=== PATIENT | male | born 1960 | race Caucasian/White ===

== ENCOUNTER 2018-10-28 17:41 | Emergency (ER) | payer MEDICAID ==
[~2018-10-28] VITALS: Ht 180.3 cm; Wt 59.0 kg
[2018-10-28 19:41] VITALS: BP 120/81
== END 2018-10-28 19:42 | disposition home or self-care (01) ==
LOC: M.ERS 17:41
DX: S01.01XA Laceration without foreign body of scalp, initial encounter (principal); M54.2 Cervicalgia; W22.8XXA Striking against or struck by other objects, initial encounter; Y93.89 Activity, other specified; Y92.89 Other specified places as the place of occurrence of the external cause; Y99.8 Other external cause status

== ENCOUNTER 2018-11-06 12:16 | Emergency (ER) | payer MEDICAID ==
[~2018-11-06] VITALS: Ht 180.3 cm; Wt 59.0 kg
[2018-11-06 12:29] VITALS: BP 132/89
== END 2018-11-06 12:33 | disposition home or self-care (01) ==
LOC: M.ERS 12:16
DX: S01.81XD Laceration without foreign body of other part of head, subsequent encounter (principal); X58.XXXD Exposure to other specified factors, subsequent encounter

== ENCOUNTER 2020-05-17 01:25 | Emergency (ER) | payer MEDICAID ==
[~2020-05-17] VITALS: Ht 180.3 cm; Wt 61.7 kg
[2020-05-17] MEDS ORDERED: PLAVIX 75 MG TA75 MG (01:41)
[2020-05-17] MEDS ORDERED: GRALISE600 MG (01:42)
[2020-05-17 03:12] VITALS: BP 137/89
== END 2020-05-17 03:15 | disposition home or self-care (01) ==
LOC: M.ERS 01:25
DX: S61.412A Laceration without foreign body of left hand, initial encounter (principal); S01.81XA Laceration without foreign body of other part of head, initial encounter; S05.11XA Contusion of eyeball and orbital tissues, right eye, initial encounter; S80.812A Abrasion, left lower leg, initial encounter; W18.39XA Other fall on same level, initial encounter; Y93.61 Activity, american tackle football; Y92.89 Other specified places as the place of occurrence of the external cause; Y99.8 Other external cause status

== ENCOUNTER 2021-03-21 17:46 | Emergency (ER) | payer MEDICAID ==
[~2021-03-21] VITALS: Ht 180.3 cm; Wt 50.8 kg
[~2021-03-21 17:46] MED LIST: GRALISE600 MG; PLAVIX 75 MG TA75 MG
[2021-03-21 21:20] VITALS: BP 135/85
== END 2021-03-21 21:20 | disposition home or self-care (01) ==
LOC: M.ERS 17:46
DX: S01.81XA Laceration without foreign body of other part of head, initial encounter (principal); F20.9 Schizophrenia, unspecified; W45.8XXA Other foreign body or object entering through skin, initial encounter; Y93.89 Activity, other specified; Y92.89 Other specified places as the place of occurrence of the external cause; Y99.8 Other external cause status

== ENCOUNTER 2021-03-28 21:37 | Emergency (ER) | payer MEDICAID ==
[~2021-03-28] VITALS: Ht 180.3 cm; Wt 62.6 kg
[2021-03-28 22:27] VITALS: BP 102/67
== END 2021-03-28 23:12 | disposition home or self-care (01) ==
LOC: M.ERS 21:37
DX: S01.111D Laceration without foreign body of right eyelid and periocular area, subsequent encounter (principal); F31.9 Bipolar disorder, unspecified; F20.9 Schizophrenia, unspecified; Z95.5 Presence of coronary angioplasty implant and graft; Z79.899 Other long term (current) drug therapy; Z91.018 Allergy to other foods; X58.XXXD Exposure to other specified factors, subsequent encounter